=== PATIENT | female | born 1960 | race Caucasian/White ===

== ENCOUNTER 2019-07-17 11:01 | Day surgery (SDC) | payer OTHER ==
--- NOTE | 2019-07-14 10:24 | HP ---
PROCEDURE DATE: 07/17/19 HISTORY OF PRESENT ILLNESS: Patient is a 58 y/o with the past month increasing in size cyst or nodule on the left side of her face just infralateral to the left eye area. She desires excision. PAST SURGICAL HISTORY: She had tonsillectomy, D&C, laparoscopic hysterectomy, arthroscopy, cholecystectomy, and right knee replacement in the past. CURRENT MEDICATIONS: Paroxetine, Singulair, celecoxib, Claritin, Women's 50+ Multivitamins, Tylenol, Strawberry-3, and Vitamin D. ALLERGIES: BEES, SPIDERS, SEASONAL ALLERGIES, TRAMADOL, AND CODEINE. FAMILY HISTORY: Heart disease, diabetes, pancreatic cancer, stroke, and breast cancer. SOCIAL HISTORY: 3/4 pack per day smoker. Denies alcohol abuse. REVIEW OF SYSTEMS: 14 systems reviewed negative or noncontributory other than above and per preadmission questionnaire. No chest pain or palpitations. Does have some chronic lung disease from smoking. Has had some anxiety/depression in the past. PHYSICAL EXAMINATION: GENERAL: No acute distress. HEENT: Sclerae nonicteric. Face - Infralateral to the left eye raised area. Whether cyst or other nodule unclear. NECK: No JVD. ABDOMEN: Soft, nontender. CHEST: Clear to auscultation. CVS: Regular rate and rhythm. EXTREMITIES: No significant edema. NEURO: Alert and oriented, moving extremities symmetrically. No gross motor deficits noted. IMPRESSION: 1. PERSISTENT CYST OR NODULE INFRALATERAL TO THE LEFT FACE AREA. SHE WAS TREATED WITH SOME VALTREX FOR A POSSIBLE VIRAL ETIOLOGY AND WAS PERSISTENT. SHE DESIRES DEFINITIVE EXCISION. General risks of bleeding; infection; risk wound dehiscence; the fact that she would have a scar in the area; risk of if it is a cyst will excise and won't return, but she could get a similar cyst adjacent to or elsewhere on her body or face. She also understands the risk of nerve irritation, contusion, scar formation, or injury; risk of dry eye or eyelid dysfunction possibly requiring other procedures; general risks of anesthesia, deep vein thrombosis, pulmonary embolism, or pneumonia, but not limited to and the fact that she would have a scar in the area. She understands and agrees to the planned procedure. PLAN: Excisional biopsy left face cyst or nodule as an outpatient.
[~2019-07-17 11:01] MED LIST: Lactated Ringers 1,000 ML IV ONE; Lactated Ringers 1,000 ML IV SCH; Sensorcaine 0.25% 10 ML ONE
[2019-07-17] MEDS ORDERED: Transderm Scop 1.5MG Patch TOP PRN (12:04)
[2019-07-17] MEDS ORDERED: Transderm Scop 1.5MG Patch ONE (12:13)
[2019-07-17] MEDS ORDERED: Versed 2 MG/2 ML Injection ONE (12:56)
[2019-07-17] MEDS ORDERED: SUBLIMAZE 100 MCG/2 ML ONE (12:56)
[2019-07-17] MEDS ORDERED: DIPRIVAN 200 MG/20 ML IV ONE (12:56)
[2019-07-17] MEDS ORDERED: KEFZOL 1 GM ONE (12:57)
[2019-07-17] MEDS ORDERED: Decadron 4 MG INJ ONE (13:13)
[2019-07-17] MEDS ORDERED: Zofran 4 MG/2 ML VIAL ONE (13:13)
[2019-07-17 14:35] VITALS: O2SAT 92
--- NOTE | 2019-07-17 15:09 | OP ---
SURGERY DATE/TIME: 07/17/2019 1255 PREOPERATIVE DIAGNOSIS: Enlarging cyst or lesion left face under eye. POSTOPERATIVE DIAGNOSIS: Ruptured cyst site left face under eye. PROCEDURE: Excision and biopsy ruptured cyst site left face under left eye (approximately 1 cm) with intermediate closure. SURGEON: Dr. Eduardo Sullivan. NUCLEAR WASTE MANAGEMENT ENGINEER: Renato Jack, Medical Student III. ANESTHESIA: General. ESTIMATED BLOOD LOSS: Minimal. INDICATIONS: As noted above. Risks and benefits explained in detail and not limited to and consent was obtained. DESCRIPTION OF PROCEDURE AND FINDINGS: The patient is taken to the operating room. Site confirmed and marked in preoperative holding area. General anesthesia induced. Patient prepped and draped in sterile fashion. After official time out and no disagreement with planned procedure, it was unclear if this was only a cyst to begin with. This is on the face right under the eye/eye lid area. Spindle-shaped excision around the thin skin. Dissection carried down and again just taking the skin off of the underlying directly up to the area where there appeared to be a ruptured cyst site. It is carefully excised from the underlying fascia and musculature staying directly on the cyst wall. The cyst was freed and passed off for pathology. It was then closed in intermediate fashion in layers with the deeper layers closed with interrupted 4-0 Vicryl avoiding any deeper nerve structures. The skin is closed with running subcuticular 6-0 Prolene. Steri-Strips and sterile dressing applied. Local had been placed out lateral to the wound. The patient tolerated the procedure well. There were no immediate complications. Findings discussed with the family out in the waiting area. I will see her back in the office next week to take the Prolene suture out.
[2019-07-17 15:10] VITALS: BP 132/85; PULSE 64
== END 2019-07-17 15:00 | disposition home or self-care (01) ==
LOC: SDC 11:01
PROVIDERS: ATTEND Surgery
DX: L72.0 Epidermal cyst (principal)
CPT/HCPCS: 88304; J0690; J1100; J2250; J2405; J2704; J3010; A9270-GY